=== PATIENT | male | born 1980 | race African-American/Black ===

== ENCOUNTER 2023-08-16 03:32 | Inpatient (IN) | payer MEDICAID, SELFPAY ==
[2023-08-16] VITALS (14 sets, daily range): BP systolic 108–140; BP diastolic 75–107; PULSE 66–128; RESP 14–39; TEMP 36.3–36.8; O2SAT 97–99
--- NOTE | ~2023-08-16 | CT_ITS ---
Non-contrast CT scan of the Abdomen and Pelvis Clinical indication: Abdominal pain Technique: 2.5 mm axial scans were obtained through the abdomen and pelvis without intravenous or or al contrast. Dose reduction technique was used on this scan by utilizing automated exposure control a nd iterative reconstruction technique. The dose-length product (DLP) was 182.59 mGy-cm. Findings: Images through the lung bases reveal no abnormalities. There is no evidence of renal or ureteral calculi. The kidneys and the ureters are nondilated. The liver, spleen, pancreas, gallbladder, and adrenals appear normal. There is no aortic aneurysm. There is no evidence of bowel obstruction. Images through the pelvis were performed. There is no evidence of ascites or lymphadenopathy. Urinary bladder unremarkable. No pelvic mass seen. Fat-containing right inguinal hernia noted. Impression: Small fat-containing right inguinal hernia. No other significant findings. Reviewed, dictated and finalized at [facility]. [employer] Impression: Small fat-containing right inguinal hernia. No other significant findings.
--- NOTE | ~2023-08-16 | XR_ITS ---
Portable chest x-ray Comparison: None Clinical History: Sepsis, weakness Findings: Lungs are clear, without focal consolidation or pleural effusion. Hyperinflation noted. C ardiomediastinal silhouette is unremarkable. Bones and soft tissues are unremarkable. Impression: Clear lungs. Hyperinflation could reflect COPD. Reviewed, dictated and finalized at location . [employer] Impression: Clear lungs. Hyperinflation could reflect COPD.
[2023-08-16 04:24] LABS: Basophils Percent Auto 0.2 % (0.2-1.2); Hematocrit 59.5 % (42.0-52.0); Hemoglobin 20.4 g/dL (14.0-18.0); Immature Granulocyte Absolute 0.05 K/mm3 (0.00-0.031); Immature Granulocyte Percent A 0.4 % (0-0.5); Lymphocytes Absolute Auto 1.58 K/mm3 (0.9-3.2); Lymphocytes Percent Auto 12.8 % (18.3-44.2); Mean Corpuscular HGB Conc 34.3 g/dl (32-36); Mean Corpuscular Hemoglobin 30.7 pg (26-34); Mean Corpuscular Volume 89.6 fl (80-100); Monocytes Percent Auto 7.7 % (2.6-8.5); Neutrophils Absolute Auto 9.7 K/mm3 (1.3-6.7); Neutrophils Percent Auto 78.9 % (45.5-73.1); Platelet Count Result 225 k/mm3 (150-375); Red Blood Count 6.64 M/mm3 (4.6-6.20); Red Cell Distribution Width 14.7 % (11.5-14.5); White Blood Count 12.3 K/mm3 (4.5-10.0)
[2023-08-16] MEDS: ONDANSETRON INJ 4 MG/2 ML VIAL IV PUSH (04:53)
[2023-08-16] MEDS: MORPHINE SULFATE (*CRX) 2 MG/ML INJ IV PUSH (04:53)
[2023-08-16] MEDS: SODIUM CHLORIDE 0.9% IV 1,000 ML 999 ML IV CONT ×2 (04:54→07:24)
[2023-08-16 05:26] LABS: Estimated CRCL calculation 18 ml/min; Estimated Glomerular Filt Rate 13
[2023-08-16 05:28] LABS: Alanine Aminotransferase 35 U/L (6-50); Albumin Level 5.5 g/dL (3.5-5.1); Alkaline Phosphatase 87 U/L (38-126); Anion Gap 26 mmol/L (8-16); Aspartate Amino Transferase 64 U/L (17-59); Bilirubin,Total 0.8 mg/dL (0.2-1.3); Blood Urea Nitrogen 58 mg/dL (9-20); Calcium 10.6 mg/dL (8.4-10.2); Carbon Dioxide 12 mmol/L (22-30); Chloride 102 mmol/L (98-107); Estimated CRCL calculation 20 ml/min; Estimated Glomerular Filt Rate 15; Glucose 135 mg/dL (65-110); Lactic Acid Reflex 2.8 mmol/L (0.7-2.0); Potassium 4.9 mmol/L (3.4-5.0); Sodium 140 mmol/L (137-145)
[2023-08-16 06:06] LABS: Lipase 28 U/L (23-300)
--- NOTE | 2023-08-16 06:56 | ED.ABDPAIN ---
HPI - Abdominal Pain General Chief Complaint: Abdominal Pain Stated Complaint: abdominal pain Time Seen by Provider: 08/16/23 04:46 History of Present Illness HPI narrative: Patient presents the emergency department with severe abdominal pain. Abdominal pain started yesterday. He feels like his abdominal muscles are cramping very tight. He has also had nausea without vomiting at home. Denies fevers and chills. Patient appears very uncomfortable and is yelling at times from the room. He states he moved here 3 years ago from [facility] and does not have a primary care doctor. Related Data Allergies Allergy/AdvReac Type Severity Reaction Status Date / Time No Known Allergies Allergy Verified 08/16/23 03:41 Review of Systems Review of Systems: Negative except what is documented in the HPI Exam Narrative: GENERAL: Well-appearing, well-nourished, and uncomfortable HEAD: Normocephalic, atraumatic. EYES: PERRLA and EOMI. ENT: Nares clear, no rhinorrhea or epistaxis. Mucous membranes moist. NECK: Supple. CHEST: Clear to auscultation. No respiratory distress. HEART: Regular rhythm. tachycardic ABDOMEN: Soft, nondistended, mild generalized tenderness EXTREMITIES: Normal range of motion. No edema. SKIN: Warm, dry, no rash. NEURO: No focal deficits. Alert and oriented x3. PSYCH: Normal mood and affect. Course Course Emergency Course: patient improved significantly after IV morphine. CT abdomen pelvis negative for any acute pathology. Creatinine over 4. Pt unaware of any previous history of renal insufficiency. anion gap elevated as well as persistent tachycardia. Pt denies any past history of kidney abnormalities. U/a pending. discussed patient with hospitalist and labs added to further explain elevated anion gap. pt admitted. Vital Signs Vital signs: Vital Signs Temperature 36.6 C 08/16/23 03:36 Pulse Rate 128 H 08/16/23 03:36 Respiratory Rate 22 H 08/16/23 03:36 Blood Pressure 108/76 08/16/23 03:36 Pulse Oximetry 97 08/16/23 03:36 Oxygen Delivery Room Air 08/16/23 03:36 Temperature 36.3 C L 08/16/23 04:32 Pulse Rate 122 H 08/16/23 04:32 Respiratory Rate 39 H 08/16/23 04:32 Blood Pressure 136/107 H 08/16/23 04:32 Pulse Oximetry 99 08/16/23 04:32 Oxygen Delivery Room Air 08/16/23 03:36 MDM - Abdominal Pain Lab Data 08/16/23 04:05 08/16/23 05:20 Labs: Lab Results 08/16/23 08/16/23 08/16/23 Range/Units 04:05 05:05 05:20 WBC 12.3 H (4.5-10.0) K/mm3 RBC 6.64 H (4.6-6.20) M/mm3 Hgb 20.4 H (14.0-18.0) g/dL Hct 59.5 H (42.0-52.0) % MCV 89.6 (80-100) fl MCH 30.7 (26-34) pg MCHC 34.3 (32-36) g/dl RDW 14.7 H (11.5-14.5) % Plt Count 225 (150-375) k/mm3 MPV 10.0 (7.4-10.4) fl Immature Gran % (Auto) 0.4 (0-0.5) % Neut % (Auto) 78.9 H (45.5-73.1) % Lymph % (Auto) 12.8 L (18.3-44.2) % [place] % (Auto) 7.7 (2.6-8.5) % Eos % (Auto) 0.0 (0-4.4) % Baso % (Auto) 0.2 (0.2-1.2) % Lymph # (Auto) 1.58 (0.9-3.2) K/mm3 [place] # (Auto) 1.0 H (0.1-0.6) K/mm3 Eos # (Auto) 0.0 (0-0.3) K/mm3 Baso # (Auto) 0.0 (0.0-0.1) K/mm3 Abs Immat Gran (auto) 0.05 H (0.00-0.031) K/mm3 Absolute Neuts (auto) 9.7 H (1.3-6.7) K/mm3 Absolute Nucleated RBC 0.0 (0.0-0.012) K/mm3 Nucleated RBC % 0.0 (0.0-0.2) % Sodium 140 (137-145) mmol/L Potassium 4.9 (3.4-5.0) mmol/L Chloride 102 (98-107) mmol/L Carbon Dioxide 12 L (22-30) mmol/L Anion Gap 26 H (8-16) mmol/L BUN 58 H (9-20) mg/dL Creatinine 4.30 H 4.80 H (0.7-1.3) mg/dL Estim Creat Clear Calc 20 18 ml/min Estimated GFR 15 L 13 L (59 - ) Glucose 135 H (65-110) mg/dL Lactic Acid 2.8 H (0.7-2.0) mmol/L Calcium 10.6 H (8.4-10.2) mg/dL Total Bilirubin 0.8 (0.2-1.3) mg/dL AST 64 H (17-59) U/L ALT 35 (6-50) U/L Alkaline
[2023-08-16 07:44] LABS: Acetaminophen < 10 ug/mL (10-30); Ethanol < 10 mg/dL (<10); Salicylate 1.3 mg/dL (2-20)
[2023-08-16 08:11] LABS: Appearance Urine Cloudy (Clear); Bacteria Urine None Seen /hpf; Bilirubin Urine Negative (Negative); Blood Urine 2+ (Negative); Color Urine Dark Yellow (Yellow); Glucose Urine UA Negative (Negative); Hyaline Casts Urine Present /lpf; Ketones Urine Trace mg/dL (Negative); Leukocyte Esterase Ur Negative LEU/UL (Negative); Nitrate Urine Negative (Negative); Non Pathogenic Casts >20; Protein Urine 1+ mg/dL (Negative); Specific Grav Ur 1.019 (1.001-1.035); Squamous Epithelial Cell Urine Occasional /hpf (Few); Urobilinogen Urine 0.2 mg/dL (<2.0); WBC Urine 0-5 /hpf; Waxy Casts Urine Present /lpf
[2023-08-16 08:14] LABS: Reflex Lactic Acid Yes or No Add Lactic
[2023-08-16 08:29] LABS: Add Urine Microscopic? YES
--- NOTE | 2023-08-16 09:12 | PC.NURSE ---
Pt asked this RN for water. Per orders pt is NPO except for ice chips, this RN tells pt that and pt was OK with the order. Pts visitor states, this hospital is dumb as fuck. Why can't he have water? and proceeds to fill the pts ice chip cup up with water for pt.
--- NOTE | 2023-08-16 09:54 | ADMGEN ---
This patient, Chauncey Piedra, was admitted to Medical Room 251-01. Patient/family oriented to hospital policies and general routines including ID bracelet, bed and alarms, visiting hours, pain management, procedures, bathroom and other care routines, personal items, smoking policy, room service/diet, and visiting hours. Information on how to activate the Rapid Response Team has been discussed. Patient/Family are encouraged to report perceived risks to care and to ask questions if they do not understand what they are told or what they should do.
--- NOTE | 2023-08-16 11:15 | PM.IMHP ---
H&P: HPI History of Present Illness Date/Time: 08/16/23 11:15 Chief Complaint: 42M w/ tobacco and marijuana abuse who presents with nausea and vomiting for 2-3 days. His household family was sick with vomiting but recovered. He denies ethanol use now or other drugs. He has never had this issue before except for 5 years ago when he had alcohol poisoning. He has since stopped drinking. He denies cough or shortness of breath. He hasn't had a BM since 3 days prior. The vomitus is clear mucous at this point. Review of Systems Review of Systems: All systems reviewed & are unremarkable except as noted in HPI and below (HPI) [facility] Past Medical History Medical History (Updated 08/16/23 @ 11:17 by Terri Bell MD) Marijuana abuse Tobacco abuse Social History Social History Smoking status: Current every day smoker Tobacco type: cigarettes Alcohol intake: never Substance use: current Substance use type: marijuana Lack of Transportation: No Lack of Food: Never True Current Housing: I Have Housing Concerned About Future Housing: No Difficulty Paying Gas/Electric Bills: No Difficulty Paying for Meds: No Currently Unemployed: No Education: Don't Know Difficulty w/ Childcare or Family Care: No Spiritual care concerns: No Meds Home Medications and Allergies Allergies Allergy/AdvReac Type Severity Reaction Status Date / Time No Known Allergies Allergy Verified 08/16/23 10:57 Vital Signs Vital Signs - 24 hr 08/16/23 03:36 08/16/23 04:32 08/16/23 07:17 Temperature 97.8 F 97.3 F L Pulse Rate 128 H 122 H 79 Respiratory Rate 22 H 39 H 14 Blood Pressure 108/76 136/107 H 116/79 Pulse Oximetry 97 99 Oxygen Delivery Room Air 08/16/23 07:30 08/16/23 07:31 08/16/23 07:46 Temperature Pulse Rate 72 74 Respiratory Rate 15 20 Blood Pressure 134/98 H 123/84 Pulse Oximetry Oxygen Delivery 08/16/23 08:01 08/16/23 08:58 Temperature Pulse Rate 98 Respiratory Rate 16 Blood Pressure 140/94 H 110/77 Pulse Oximetry 98 Oxygen Delivery Exam Const: General: in distress (due to abdominal pain, not actively vomiting) Other: A&ox3 Eyes: Pupils: Equal, round and reactive pupils present Neck: Neck: supple Resp: Effort & Inspection: normal respiratory effort Auscultation: clear to auscultation bilaterally, no crackles, no rales and no rhonchi Cardio: Rate: regular rate Rhythm: regular rhythm Heart sounds: no gallops, no murmurs and no rubs GI: Inspection: non-distended GI Palp: No Tenderness to palpation present (GI) and No Guarding due to palpation present (GI) Auscultation: normal bowel sounds H&P: Results Labs Labs: Short CBC 08/16/23 Range/Units 04:05 WBC 12.3 H (4.5-10.0) K/mm3 Hgb 20.4 H (14.0-18.0) g/dL Hct 59.5 H (42.0-52.0) % Plt Count 225 (150-375) k/mm3 BMP 08/16/23 08/16/23 05:05 05:20 Sodium 140 Potassium 4.9 Chloride 102 Carbon Dioxide 12 L BUN 58 H Creatinine 4.30 H 4.80 H Glucose 135 H Calcium 10.6 H Liver Function 08/16/23 Range/Units 05:05 Total Bilirubin 0.8 (0.2-1.3) mg/dL AST 64 H (17-59) U/L ALT 35 (6-50) U/L Alkaline Phosphatase 87 (38-126) U/L Albumin 5.5 H (3.5-5.1) g/dL Urine 08/16/23 Range/Units 07:51 Urine Color Dark yellow (Yellow) Urine Appearance Cloudy H (Clear) Urine pH 5.0 (5.0-9.0) Ur Specific [place] 1.019 (1.001-1.035) Urine Protein 1+ H (Negative) mg/dL Urine Glucose (UA) Negative (Negative) mg/dL Assessment and Plan Assessment and plan (1) Acute kidney insufficiency: Code(s): N28.9 - Disorder of kidney and ureter, unspecified Status: Acute (2) Abdominal pain: Qualifiers: Abdominal location: generalized Qualified Code(s): R10.84 - Generalized abdominal pain Code(s): R10.9 - Unspecified abdominal pain Status: Acute (3) Vomiting: Qualifiers
[2023-08-16] MEDS: SODIUM CHLORIDE 0.9% IV 1,000 ML 150 ML IV CONT ×2 (11:25→20:06)
[2023-08-16] MEDS: MORPHINE SULFATE (*CRX) 2 MG/ML INJ (11:25)
[2023-08-16 11:36] LABS: Amphetamine Screen Urine Negative (Negative); Barbiturate Screen Urine Negative (Negative); Benzodiazepines Screen Urine Negative (Negative); Cannabinoid Screen Urine Positive (Negative); Cocaine Screen Urine Negative (Negative); Methadone Screen Urine Negative (Negative); Opiate Screen Urine Positive (Negative); Phencyclidine Screen Urine Negative (Negative)
[2023-08-16 11:42] LABS: Anion Gap 11 mmol/L (8-16); Blood Urea Nitrogen 58 mg/dL (9-20); Calcium 9.1 mg/dL (8.4-10.2); Carbon Dioxide 23 mmol/L (22-30); Chloride 107 mmol/L (98-107); Estimated CRCL calculation 33 ml/min; Estimated Glomerular Filt Rate 34; Glucose 106 mg/dL (65-110); Potassium 4.6 mmol/L (3.4-5.0); Sodium 141 mmol/L (137-145)
[2023-08-16 11:43] LABS: Alanine Aminotransferase 29 U/L (6-50); Albumin Level 4.7 g/dL (3.5-5.1); Alkaline Phosphatase 68 U/L (38-126); Anion Gap 6 mmol/L (8-16); Aspartate Amino Transferase 68 U/L (17-59); Bilirubin,Total 0.8 mg/dL (0.2-1.3); Blood Urea Nitrogen 57 mg/dL (9-20); Calcium 9.1 mg/dL (8.4-10.2); Carbon Dioxide 23 mmol/L (22-30); Chloride 107 mmol/L (98-107); Estimated CRCL calculation 32 ml/min; Estimated Glomerular Filt Rate 33; Glucose 107 mg/dL (65-110); Lactic Acid Reflex 1.7 mmol/L (0.7-2.0); Potassium 4.6 mmol/L (3.4-5.0); Sodium 136 mmol/L (137-145)
[2023-08-16 12:20] LABS: Influenza A QL RT-PCR Negative (Negative); Influenza B QL RT-PCR Negative (Negative); RSV RNA, RT-PCR Negative (Negative); SARS-CoV-2 RNA PCR Negative (Negative)
[2023-08-16] MEDS: PANTOPRAZOLE SODIUM IV 40 MG VIAL IV PUSH (20:17)
[2023-08-17 00:04] VITALS: PULSE 68
[2023-08-17] MEDS: SODIUM CHLORIDE 0.9% IV 1,000 ML 150 ML IV CONT (02:27)
[2023-08-17 04:00] VITALS: PULSE 64
[2023-08-17 05:24] VITALS: BP 117/80; PULSE 60; RESP 18; TEMP 36.8; O2SAT 100
[2023-08-17 06:20] LABS: Basophils Percent Auto 0.2 % (0.2-1.2); Eosinophils Percent Auto 0.1 % (0-4.4); Hematocrit 44.6 % (42.0-52.0); Hemoglobin 15.2 g/dL (14.0-18.0); Immature Granulocyte Absolute 0.02 K/mm3 (0.00-0.031); Immature Granulocyte Percent A 0.2 % (0-0.5); Lymphocytes Absolute Auto 1.95 K/mm3 (0.9-3.2); Mean Corpuscular HGB Conc 34.1 g/dl (32-36); Mean Corpuscular Hemoglobin 30.8 pg (26-34); Mean Corpuscular Volume 90.3 fl (80-100); Mean Platelet Volume 9.2 fl (7.4-10.4); Monocytes Percent Auto 10.7 % (2.6-8.5); Neutrophils Absolute Auto 5.9 K/mm3 (1.3-6.7); Neutrophils Percent Auto 66.8 % (45.5-73.1); Platelet Count Result 162 k/mm3 (150-375); Red Blood Count 4.94 M/mm3 (4.6-6.20); Red Cell Distribution Width 13.9 % (11.5-14.5); White Blood Count 8.9 K/mm3 (4.5-10.0)
[2023-08-17 06:38] LABS: Alanine Aminotransferase 26 U/L (6-50); Albumin Level 3.8 g/dL (3.5-5.1); Alkaline Phosphatase 60 U/L (38-126); Anion Gap 5 mmol/L (8-16); Aspartate Amino Transferase 68 U/L (17-59); Blood Urea Nitrogen 29 mg/dL (9-20); Carbon Dioxide 26 mmol/L (22-30); Chloride 110 mmol/L (98-107); Estimated CRCL calculation 73 ml/min; Estimated Glomerular Filt Rate > 60; Glucose 88 mg/dL (65-110); Potassium 4.8 mmol/L (3.4-5.0); Sodium 141 mmol/L (137-145)
[2023-08-17 08:03] VITALS: PULSE 65
[2023-08-17] MEDS: PANTOPRAZOLE SODIUM IV 40 MG VIAL IV PUSH (08:17)
[2023-08-17 08:21] VITALS: PULSE 74; RESP 18; O2SAT 100
--- NOTE | 2023-08-17 09:47 | PM.DS ---
DS: Admitting Diagnosis Discharge Date 08/17/23 Admitting Diagnosis nausea vomiting and abdominal pain DS: Discharge Diagnosis Discharge Diagnosis (1) Tobacco abuse: Code(s): Z72.0 - Tobacco use Status: Acute (2) Marijuana abuse: Code(s): F12.10 - Cannabis abuse, uncomplicated Status: Acute (3) Abdominal pain: Qualifiers: Abdominal location: generalized Qualified Code(s): R10.84 - Generalized abdominal pain Code(s): R10.9 - Unspecified abdominal pain Status: Acute (4) Vomiting: Qualifiers: Nausea presence: with nausea Vomiting type: unspecified Qualified Code(s): R11.2 - Nausea with vomiting, unspecified Code(s): R11.10 - Vomiting, unspecified Status: Acute (5) Acute kidney insufficiency: Code(s): N28.9 - Disorder of kidney and ureter, unspecified Status: Acute (6) Metabolic acidosis, increased anion gap: Code(s): E87.29 - Other acidosis Status: Acute (7) Gastroenteritis: Code(s): K52.9 - Noninfective gastroenteritis and colitis, unspecified Status: Acute (8) Cannabis hyperemesis syndrome concurrent with and due to cannabis abuse: Code(s): F12.188 - Cannabis abuse with other cannabis-induced disorder Status: Acute DS: Summary Hospital Course Hospital Course: 42M w/ tobacco and marijuana abuse who presents with nausea and vomiting for 2-3 days. His household family members were sick as well with vomiting but recovered. He denies ethanol use now or other drugs. He has never had this issue before except for 5 years ago when he had alcohol poisoning. He has since stopped drinking. He denied cough or shortness of breath and the abdominal pain started shortly after the vomiting. The pt reported his vomitus as clear mucous like. He denied diarrhea and hadn't had a BM since he wasn't able to tolerate PO intake. At some point he was in the laying in the shower with the water on trying to relieve his symptoms. He admitted to heartburn during this time as well. The patient was admitted with abdominal pain and treated with IVF and morphine for pain along with protonix IV. All of his problems resolved with this including lactic acidosis, acute kidney injury, dehydration, nausea vomiting and abdominal pain. On 08/17 he ate a banana, orange juice and toast with no issues. The pts symptoms have completely resolved and he feels ready to go home. He will be vt'ed to home in stable condition with protonix 40mg qday as a new medication. He was heavily counseled on stopping tobacco and marijuana abuse as there may have been some synergy of cannabis hyperemesis syndrome on top of his likely viral gastroenteritis. He was also counseled on the other risks of tobacco and marijuana abuse. He understood and agreed to quit. He wanted to do so on his own and he also agrees to follow up with PCP on these matter as well as Protonix use and GERD. More than 30 minutes spent on discharge planning and documentation. Time Spent with Patient Time attestation: Total time spent providing and/or coordinating discharge services: Exam Const: General: cooperative and no acute distress Resp: Effort & Inspection: normal respiratory effort Auscultation: clear to auscultation bilaterally Cardio: Rate: regular rate Rhythm: regular rhythm Heart sounds: S1 normal heart sound present and S2 normal heart sound present GI: GI Palp: No abdominal tenderness Auscultation: normal bowel sounds DS: Data Data Completed and Pending Labs on day of discharge: Labs from last 24 hours 08/17/23 08/16/23 08/16/23 06:06 11:23 11:23 WBC 8.9 RBC 4.94 Hgb 15.2 D Hct 44.6 MCV 90.3 MCH 30.8 MCHC 34.1 RDW 13.9 Plt Count 162 MPV 9.2 Immature Gran % (Auto) 0.2 Neut % (Auto) 66.8 Lymph % (Auto) 22.0 [place] % (Auto) 10.7 H Eos % (Auto) 0.1 Baso % (Auto) 0.2 Lymph # (Auto) 1.95 [place] # (Auto)
[2023-08-17 11:15] VITALS: BMI 20.3
== END 2023-08-17 11:15 | disposition home or self-care (01) | DRG 249 ==
LOC: ANHED 07:36 → ANH3MEDSUR 08:10 → ANH2MED 09:17
PROVIDERS: Admitting Provider General Practice; Emergency Provider Emergency Medicine; Visit Provider General Practice
DX: A08.4 Viral intestinal infection, unspecified (principal); R11.2 Nausea with vomiting, unspecified; F12.188 Cannabis abuse with other cannabis-induced disorder; N17.8 Other acute kidney failure; N28.9 Disorder of kidney and ureter, unspecified; E87.21 Acute metabolic acidosis; F17.210 Nicotine dependence, cigarettes, uncomplicated; Z20.822 Contact with and (suspected) exposure to COVID-19
CPT/HCPCS: 36415; 71045; 74176; 80048; 80053; 80307; 81001; 83605; 83690; 85025; 87637; 96361; 96374; 96375; 99285; C9113; G0378; G0379; J2270; J2405; J7030